=== PATIENT | male | born 1970 | race Caucasian/White ===

== ENCOUNTER 2019-01-17 12:42 | Emergency (ER) | payer BC ==
--- NOTE | 2019-01-17 12:53 | EDM.PDOC ---
ED HPI GENERAL MEDICAL PROBLEM - General Chief Complaint: Upper Extremity Injury/Pain Stated Complaint: RIGHT HAND;FINGER INJURY Time Seen by Provider: 01/17/19 12:52 Source of Information: Reports: Patient History Limitations: Reports: No Limitations - History of Present Illness INITIAL COMMENTS - FREE TEXT/NARRATIVE: HISTORY AND PHYSICAL: History of present illness: [] Review of systems: As per history of present illness and below otherwise all systems reviewed and negative. Past medical history: As per history of present illness and as reviewed below otherwise noncontributory. Surgical history: As per history of present illness and as reviewed below otherwise noncontributory. Social history: No reported history of drug or alcohol abuse. Family history: As per history of present illness and as reviewed below otherwise noncontributory. Physical exam: General: Patient sitting comfortably in no acute distress and nontoxic appearing HEENT: Atraumatic, normocephalic, pupils reactive, negative for conjunctival pallor or scleral icterus, mucous membranes moist, throat clear, neck supple, nontender, trachea midline. No meningeal signs. Lungs: Clear to auscultation, breath sounds equal bilaterally, chest nontender. Heart: S1S2, regular, negative for clicks, rubs, or overt murmur. Abdomen: Soft, nondistended, nontender. Negative for masses or hepatosplenomegaly. Negative for costovertebral tenderness. No rigidity, rebound , guarding. Pelvis: Stable nontender. Genitourinary: Deferred. Rectal: Deferred. Extremities: Atraumatic, negative for cords or calf pain. Neurovascular unremarkable. Neuro: Awake, alert, oriented. Cranial nerves II through XII unremarkable. Cerebellum unremarkable. Motor and sensory unremarkable throughout. Exam nonfocal. Notes: Diagnostics: [] Therapeutics: [] Prescriptions: Impression: [] Plan: [] Definitive disposition and diagnosis as appropriate pending reevaluation and review of above. - Related Data Allergies Allergy/AdvReac Type Severity Reaction Status Date / Time No Known Allergies Allergy Verified 01/17/19 12:50 Home Meds: Home Meds . [No Known Home Meds] 01/17/19 [History] Review of Systems - Review of Systems Review Of Systems: ROS reveals no pertinent complaints other than HPI. ED EXAM, GENERAL - Physical Exam Exam: See Below (see dictation) Course - Orders/Labs/Meds Orders: Active Orders 24 hr Category Date Time Status Fingers Fifth Digit Rt F9 [CR] Stat Exams 01/17/19 12:52 Ordered Departure - Discharge Information Referrals: Claudio Guy MD [Primary Care Provider] - - My Orders Last 24 Hours: My Active Orders 01/17/19 12:52 Fingers Fifth Digit Rt F9 [CR] Stat - Assessment/Plan Last 24 Hours: My Active Orders 01/17/19 12:52 Fingers Fifth Digit Rt F9 [CR] Stat
[2019-01-17] MEDS ORDERED: Diphtheria,Pertussis(Acell),Tetanus Vaccine 0.5 ML Syringe IM ONE (12:56)
[2019-01-17] MEDS ORDERED: cefTRIAXone 1 GM Vial IM ONE (12:56)
[2019-01-17] MEDS ORDERED: Lidocaine 1% 10 ML MDV INJECT ONE (13:03)
[2019-01-17] MEDS ORDERED: Morphine 4 MG/ML Syringe IVPUSH ONE (13:10)
[2019-01-17] MEDS ORDERED: Ondansetron 4 MG/2 ML SDV IVPUSH ONE (13:21)
[2019-01-17] MEDS ORDERED: Ondansetron 4 MG/2 ML SDV ONE (13:22)
--- NOTE | 2019-01-17 13:27 | EDM.PDOC ---
ED HPI GENERAL MEDICAL PROBLEM - General Chief Complaint: Upper Extremity Injury/Pain Stated Complaint: RIGHT HAND;FINGER INJURY Time Seen by Provider: 01/17/19 12:52 Source of Information: Reports: Patient - History of Present Illness INITIAL COMMENTS - FREE TEXT/NARRATIVE: HISTORY AND PHYSICAL: History of present illness: [Just prior to arrival patient was working on a tractor hitch, his son had a pushed a button in the cab of the tractor resulting in amputation of his fifth digit on x-ray the distal portion of the interdigital phalanx is gone as well as distal phalanx he through this portion away at the scene. He refuses transfer to [place] requesting treatment now to the best of my ability as he has amputated fingers before a does not desire to travel to [place] for hand specialist however it has been offered. Have discussed the case with hand specialty for their recommendations in this instance Review of systems: As per history of present illness and below otherwise all systems reviewed and negative. Past medical history: As per history of present illness and as reviewed below otherwise noncontributory. Surgical history: As per history of present illness and as reviewed below otherwise noncontributory. Social history: No reported history of drug or alcohol abuse. Family history: As per history of present illness and as reviewed below otherwise noncontributory. Physical exam: HEENT: Atraumatic, normocephalic, pupils reactive, negative for conjunctival pallor or scleral icterus, mucous membranes moist, throat clear, neck supple, nontender, trachea midline. Lungs: Clear to auscultation, breath sounds equal bilaterally, chest nontender. Heart: S1S2, regular, negative for clicks, rubs, or JVD. Abdomen: Soft, nondistended, nontender. Negative for masses or hepatosplenomegaly. Negative for costovertebral tenderness. Pelvis: Stable nontender. Genitourinary: Deferred. Rectal: Deferred. Extremities: Atraumatic, negative for cords or calf pain. Neurovascular unremarkable. Neuro: Awake, alert, oriented. Cranial nerves II through XII unremarkable. Cerebellum unremarkable. Motor and sensory unremarkable throughout. Exam nonfocal. Diagnostics: [] Therapeutics: Patient is offered transfer however he adamantly refuses Consent is signed and on chart wound cleansed and explored Possible need for revision by hand specialist was discussed patient accepts this risk irrigated well [Tetanus status is updated 1 g Rocephin Rongeur was used to trim remnant bone of interdigital phalanx back to the proximal phalanx Again flushed and irrigated thoroughly Lidocaine for digital block Morphine 4 mg IV Zofran 8 mg IV Versed 4 mg IV Closure with 5-0 Prolene sutures interrupted #5 Sutures out in 14 days Splint for protection and comfort/healing keFlex 500 mg by mouth twice a day #20 no refill [place] per 325 #30 no refill All risks and benefits discussed I did discuss patient with hand specialist gas station attendant at [facility], he recommends rongeur back to the proximal phalanx irrigation and closure Follow-up with orthopedist or hand specialist both options are offered for one week for recheck ] Impression: [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 RMarek Pinky Pain Score (Numeric/FACES): 2 - Related Data Allergies Allergy/AdvReac Type Severity Reaction Status Date / Time No Known Allergies Allergy Verified 01/17/19 12:50 Home Meds: Home Meds . [No Known Home Meds] 01/17/19 [History] Past Medical History - Past Health History Medical/Surgical History: Denies Medical/Surgical History - Infectious Disease History Infectious Disease History: Reports: None Social & Family History - Family History Family Medical History: Noncontributory - Tobacco Use Smoking Status *Q: Current Every Day Smoker Years of Tobacco use: 25 Packs/Tins Daily: 0.5 - Caffeine Use Caffeine Use: Reports: Coffee - Recreational Drug Use Recreational Drug Use: No ED ROS GENERAL - Review of Systems Review Of Systems: See Below ED EXAM, GENERAL - Physical Exam Exam: See Below Course - Vital Signs Last Recorded V/S: Last Vital Signs Temp 98.2 F 01/17/19 12:50 Pulse 102 H 01/17/19 13:53 Resp 15 01/17/19 12:50 BP 145/96 H 01/17/19 13:53 Pulse Ox 98 01/17/19 13:53 - Orders/Labs/Meds Orders: Active Orders 24 hr Category Date Time Status Vaccines to be Administered [RC] PER UNIT ROUTINE Care 01/17/19 12:56 Active Meds: Medications Discontinued Medications Generic Name Dose Route Start Last Admin Trade Name Freq PRN Reason Stop Dose Admin Ceftriaxone Sodium 1 gm 01/17/19 12:56 01/17/19 13:25 Rocephin IM 01/17/19 12:57 1 gm ONETIME ONE Administration Diphtheria/Tetanus/Acell Pertussis 0.5 ml 01/17/19 12:56 01/17/19 13:25 Adacel IM 01/17/19 12:57 0.5 ml .ONCE ONE Administration Lidocaine HCl 10 ml 01/17/19 13:03 01/17/19 13:26 Xylocaine 1% INJECT 01/17/19 13:04 10 ml ONETIME ONE Administration Lidocaine HCl 5 ml 01/17/19 13:03 01/17/19 13:26 Xylocaine-Mpf 1% INJECT 01/17/19 13:04 5 ml ONETIME ONE Administration Lidocaine HCl Confirm 01/17/19 13:04 Xylocaine-Mpf 1% Administered 01/17/19 13:05 Dose 15 ml .ROUTE .STK-MED ONE Midazolam HCl 4 mg 01/17/19 13:41 01/17/19 13:46 Versed 5 Mg/Ml IVPUSH 01/17/19 13:42 Not Given ONETIME ONE Midazolam HCl 4 mg 01/17/19 13:47 01/17/19 13:48 Versed 1 Mg/Ml IVPUSH 01/17/19 13:48 4 mg ONETIME ONE Administration Morphine Sulfate 4 mg 01/17/19 13:10 01/17/19 13:24 Morphine IVPUSH 01/17/19 13:11 4 mg ONETIME ONE Administration Ondansetron HCl 8 mg 01/17/19 13:21 01/17/19 13:24 Zofran IVPUSH 01/17/19 13:22 8 mg ONETIME ONE Administration Ondansetron HCl Confirm 01/17/19 13:22 Zofran Administered 01/17/19 13:23 Dose 8 mg .ROUTE .STK-MED ONE Departure - Departure Time of Disposition: 14:20 Disposition: Home, Self-Care 01 Condition: Good Clinical Impression: Amputation finger - Discharge Information Referrals: Claudio Guy MD [Primary Care Provider] - Forms: ED Department Discharge Additional Instructions: Medication as prescribed Return if symptoms persist or worsen Follow-up with orthopedist or hand specialist one week Hand specialist available through [facility] in [facility], [address] at [place] and asked to be transferred to the hand clinic to schedule appointment Or follow-up with orthopedist here in town, call phone number below to schedule appropriate follow-up [facility] Professional Building [address] [place] [address], [address] [place] [address] The following information is given to patients seen in the emergency department who are being discharged to home. This information is to outline your options for follow-up care. We provide all patients seen in our emergency department with a follow-up referral. The need for follow-up, as well as the timing and circumstances, are variable depending upon the specifics of your emergency department visit. If you don't have a primary care physician on staff, we will provide you with a referral. We always advise you to contact your personal physician following an emergency department visit to inform them of the circumstance of the visit and for follow-up with them and/or the need for any referrals to a consulting specialist. The emergency department will also refer you to a specialist when appropriate. This referral assures that you have the opportunity for follow-up care with a specialist. All of these measure are taken in an effort to provide you with optimal care, which includes your follow-up. Under all circumstances we always encourage you to contact your private physician who remains a resource for coordinating your care. When calling for follow-up care, please make the office aware that this follow-up is from your recent emergency room visit. If for any reason you are refused follow-up, please contact the [facility] emergency department at and asked to speak to the emergency department charge nurse. - My Orders Last 24 Hours: My Active Orders 01/17/19 12:56 Vaccines to be Administered [RC] PER UNIT ROUTINE - Assessment/Plan Last 24 Hours: My Active Orders 01/17/19 12:56 Vaccines to be Administered [RC] PER UNIT ROUTINE
--- NOTE | 2019-01-17 13:29 | CR ---
INDICATION: Crush injury to 5th digit. TECHNIQUE: Three views. FINDINGS: Soft tissue and bone defect at the distal 5th digit, about the DIP joint. There are portions of bone and soft tissue missing/absent. No radiopaque foreign body identified. 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 Dictated by Nick Goyal MD @ Jan 17 2019 1:24PM Signed by Dr. Nick Goyal @ Jan 17 2019 1:26PM
--- NOTE | 2019-01-17 13:40 | CR ---
INDICATION: Crushing injury to 5th digit. TECHNIQUE: Right 5th digit three views COMPARISON: None FINDINGS AND IMPRESSION: There is a large soft tissue defect of the right 5th digit with amputation of the head of the 5th middle phalanx and base of the 5th distal phalanx. There is a small (3 mm) osseous fragment adjacent to the remaining 5th distal phalanx. Alignment at the PIP joint is anatomic. There is associated soft tissue swelling of the 5th digit. Dictated by Nancy Partida MD @ 01/17/2019 1:37:47 PM Dictated by: Nancy Partida MD @ 01/17/2019 13:38:01 (Electronically Signed)
[2019-01-17] MEDS ORDERED: Midazolam 5 MG/ML SDV IVPUSH ONE (13:41)
[2019-01-17] MEDS ORDERED: Midazolam 1 MG/ML 2 ML SDV IVPUSH ONE (13:47)
[2019-01-17] MEDS ORDERED: Bacitracin Oint 28.35 GM Tube TOP ONE (14:32)
[2019-01-17] MEDS ORDERED: Bacitracin Oint 1 GM U/D Packet ONE (14:32)
== END 2019-01-17 14:55 | disposition home or self-care (01) ==
LOC: MW.ED 12:42
DX: S68.116A Complete traumatic metacarpophalangeal amputation of right little finger, initial encounter (principal); F17.210 Nicotine dependence, cigarettes, uncomplicated; Z23 Encounter for immunization; W30.89XA Contact with other specified agricultural machinery, initial encounter
CPT/HCPCS: 26951; 73130; 73140; 90471; 90715; 96372; 96374; 96375; 99283; J0696; J2001; J2250; J2270; J2405

== ENCOUNTER 2021-02-20 21:25 | Emergency (ER) | payer BC ==
--- NOTE | 2021-02-20 22:10 | CR ---
INDICATION: Hypertension TECHNIQUE: Chest radiograph 1 view COMPARISON: None FINDINGS: Mediastinum: The mediastinum is normal in appearance. The heart silhouette is normal in size and morphology. Lung: Both lungs are unremarkable in appearance. No sign of pleural effusion seen. No pneumothorax is identified. Bone and Soft tissue: Unremarkable for age. IMPRESSION: 1. No acute cardiopulmonary disease is seen. Dictated by: Kiet Villagran MD @ 02/20/2021 22:09:26 (Electronically Signed)
[2021-02-20 22:50] LABS: BLOOD UREA NITROGEN,BUN 18 mg/dL (7.0-18.0); CARBON DIOXIDE,CO2 29.6 mmol/L (21.0-32.0); CHLORIDE,CL 105 mmol/L (98-107); GLUCOSE RANDOM 114 mg/dL (74-106); POTASSIUM,K 4.1 mmol/L (3.5-5.1); SODIUM,NA 143 mmol/L (136-148)
[2021-02-21] MEDS ORDERED: amLODIPine 5 MG Tab PO ONE (00:28)
--- NOTE | 2021-02-21 01:56 | EDM.PDOC ---
ED HPI GENERAL MEDICAL PROBLEM - General Chief Complaint: General Stated Complaint: High blood pressure Time Seen by Provider: 02/21/21 00:13 - History of Present Illness INITIAL COMMENTS - FREE TEXT/NARRATIVE: HISTORY AND PHYSICAL: History of present illness: This is a healthy 50-year-old gentleman who presents ER today secondary to noticing his blood pressure was elevated today. Patient reports that he has been in his usual state of health and had a physical exam approximately 2 months ago and was told his blood pressure was normal. Patient reports in the past he has had slightly elevated blood pressures intermittently and at times. He reports he is never required blood pressure medications. Patient reports that today he just was not feeling right without any specific complaints so he used his 's blood pressure machine and notes that his blood pressure was markedly elevated. Patient came to the ED for further evaluation. Patient denies any other symptomatology. Patient denies any recent fevers, shakes, chills, nausea, vomiting, diarrhea, dysuria, frequency, urgency, chest pain, shortness breath, abdominal pain, headache, blurred vision, double vision, weakness of his upper or lower extremities. Patient denies any urinary changes. Patient denies any lower extremity edema. Patient denies any increase shortness of breath. Patient has no neurological cardiac or renal symptoms. Review of systems: As per history of present illness and below otherwise all systems reviewed and negative. Past medical history: As per history of present illness and as reviewed below otherwise noncontributory. Surgical history: As per history of present illness and as reviewed below otherwise noncontributory. Social history: No reported history of drug abuse. Family history: As per history of present illness and as reviewed below otherwise noncontributory. Physical exam: This patient was seen and evaluated during the 2019 SARS-CoV-2 novel coronavirus pandemic period. Community viral transmission is ongoing at time of this encounter and the emergency department is operating under pandemic response procedures. Constitutional: Patient is oriented to person, place, and time. Appears well-developed and well-nourished. No distress. HEENT: Moist mucous membranes Head: Normocephalic and atraumatic Eyes: Right eye exhibits no discharge. Left eye exhibits no discharge. No scleral icterus Neck: Normal range of motion. No tracheal deviation present. Cardiovascular: Normal rate and regular rhythm. Pulmonary: Effort normal, no respiratory distress. Abdominal: No distention Musculoskeletal: Normal range of motion Neurologic: Alert and oriented to person, place and time. Skin: [place], warm and dry. Psychiatric: Normal mood and affect. Behavior is normal. Judgment and thought content normal. Nursing note and vital signs have been reviewed Diagnostics: CBC, CMP within normal limits. Chest Xray: Normal cardiac silhouette No infiltrates or effusions identified. No PTX No evidence of acute bony fracture. As interpreted by ER MD: Al EKG February 21, 2021 12:41 AM: EKG: As interpreted by ER physician: Al: Nonspecific ST-T wave abnormalities Normal axis No evidence of ST elevation [place] Normal sinus rhythm heart rate of 90 Therapeutics: Norvasc 10 mg p.o. Assessment and plan: 50-year-old gentleman who presents ER today secondary to elevated blood pressure. Patient's blood pressure was markedly elevated here in triage and room while he was resting. Patient denies any new allergens, medications, stimulants, [id number] medicines, herbal drugs, increased stress in his life or any other sources of elevated blood pressure. Given the elevation in his BP labs were drawn. Patient is no evidence of intracranial, cardiac, renal pathology from his elevated blood pressure. Patient has no evidence of hypertensive emergency. Patient will have antihypertensive medications initiated here in the ED given the significant elevation and he will be instr ucted to follow-up with his doctor in the next 1 to 2 weeks for reevaluation. Patient was given a dose of Norvasc 10 mg p.o. with significant improvement. Patient be discharged with a prescription for the same. Reassessment at the time of disposition demonstrates that the patient is in no acute distress. The patient has remained stable throughout the entire ED visit and is without objective evidence for acute process requiring urgent intervention or hospitalization. The patient is stable for discharge, counseling is provided as documented above, discussed symptomatic treatment and specific conditions for return. I have spoken with the patient/caregiver and discussed todays findings, in addition to providing specific details for the plan of care. Questions are answered and there is agreement with the plan. Definitive disposition and diagnosis as appropriate pending reevaluation and review of above. - Related Data Allergies Allergy/AdvReac Type Severity Reaction Status Date / Time No Known Allergies Allergy Verified 01/17/19 12:50 Home Meds: Home Meds amLODIPine Besylate [Amlodipine Besylate] 10 mg PO DAILY #30 tablet 02/21/21 [Rx] Past Medical History - Past Health History Medical/Surgical History: Denies Medical/Surgical History - Infectious Disease History Infectious Disease History: Reports: None Social & Family History - Family History Family Medical History: No Pertinent Family History - Tobacco Use Second Hand Smoke Exposure: No - Caffeine Use Caffeine Use: Reports: None - Recreational Drug Use Recreational Drug Use: No ED ROS GENERAL - Review of Systems Review Of Systems: See Below ED EXAM, GENERAL - Physical Exam Exam: See Below Course - Vital Signs Last Recorded V/S: Last Vital Signs Temp 98.2 F 02/20/21 21:36 Pulse 116 H 02/20/21 21:36 Resp 20 02/20/21 21:36 BP 164/99 H 02/21/21 01:35 Pulse Ox 96 02/21/21 01:35 - Orders/Labs/Meds Orders: Active Orders 24 hr Category Date Time Status Cardiac Monitoring [RC] . DIRECTED Care 02/20/21 21:48 Active Labs: Laboratory Tests 02/20/21 02/20/21 02/21/21 Range/Units 22:24 22:24 01:15 WBC 7.88 (4.0-11.0) K/uL RBC 4.47 L (4.50-5.90) M/uL Hgb 14.3 (13.0-17.0) g/dL Hct 42.0 (38.0-50.0) % MCV 94.0 (80.0-98.0) fL MCH 32.0 (27.0-32.0) pg MCHC 34.0 (31.0-37.0) g/dL RDW Std Deviation 46.8 (28.0-62.0) fl RDW Coeff of Valerie 14 (11.0-15.0) % Plt Count 240 (150-400) K/uL MPV 9.90 (7.40-12.00) fL Neut % (Auto) 57.7 (48.0-80.0) % Lymph % (Auto) 28.9 (16.0-40.0) % [place] % (Auto) 11.5 (0.0-15.0) % Eos % (Auto) 1.6 (0.0-7.0) % Baso % (Auto) 0.3 (0.0-1.5) % Neut # (Auto) 4.5 (1.4-5.7) K/uL Lymph # (Auto) 2.3 (0.6-2.4) K/uL [place] # (Auto) 0.9 H (0.0-0.8) K/uL Eos # (Auto) 0.1 (0.0-0.7) K/uL Baso # (Auto) 0.0 (0.0-0.1) K/uL Nucleated RBC % 0.0 /100WBC Nucleated RBCs # 0 K/uL Sodium 143 (136-148) mmol/L Potassium 4.1 (3.5-5.1) mmol/L Chloride 105 (98-107) mmol/L Carbon Dioxide 29.6 (21.0-32.0) mmol/L BUN 18 (7.0-18.0) mg/dL Creatinine 1.0 (0.8-1.3) mg/dL Est Cr Clr Drug Dosing 110.91 mL/min Estimated GFR (MDRD) > 60.0 ml/min Glucose 114 H (74-106) mg/dL Calcium 9.7 (8.5-10.1) mg/dL Total Bilirubin 0.2 (0.2-1.0) mg/dL AST 18 (15-37) IU/L ALT 34 (14-63) IU/L Alkaline Phosphatase 64 (46-116) U/L Troponin I < 0.050 (0.000-0.056) ng/mL Total Protein 7.2 (6.4-8.2) g/dL Albumin 3.6 (3.4-5.0) g/dL Globulin 3.6 (2.6-4.0) g/dL Albumin/Globulin Ratio 1.0 (0.9-1.6) Urine Color YELLOW Urine Appearance CLEAR Urine pH 6.5 (5.0-8.0) Ur Specific Manning 1.020 (1.001-1.035) Urine Protein NEGATIVE (NEGATIVE) mg/dL Urine Glucose (UA) NEGATIVE (NEGATIVE) mg/dL Urine Ketones NEGATIVE (NEGATIVE) mg/dL Urine Occult Blood NEGATIVE (NEGATIVE) Urine Nitrite NEGATIVE (NEGATIVE) Urine Bilirubin NEGATIVE (NEGATIVE) Urine Urobilinogen 0.2 (<2.0) EU/dL Ur Leukocyte Esterase NEGATIVE (NEGATIVE) Meds: Medications Discontinued Medications Generic Name Dose Route Start Last Admin Trade Name Daniel PRN Reason Stop Dose Admin Amlodipine Besylate 10 mg 02/21/21 00:28 02/21/21 00:37 Amlodipine 5 Mg Tab PO 02/21/21 00:29 10 mg ONETIME ONE Administration Departure - Departure Time of Disposition: 01:58 Disposition: Home, Self-Care 01 Condition: Good Clinical Impression: Hypertension - Discharge Information Instructions: How to Take Your Blood Pressure, Hypertension, Adult, [id number], Managing Your Hypertension Referrals: PCP,None [Primary Care Provider] - Additional Instructions: You were seen and evaluated in the ER today secondary to elevated blood pressure. Your blood tests, your EKG have all been normal. You were started on amlodipine/Norvasc 10 mg daily in the ER today. You will be given a prescription for 30 days of this medication. Please see your doctor within the next week for reevaluation and repeat of your blood pressure to see if they agre e with the plan of care that was initiated here in the ER today. Please return the ER if you develop any new or concerning symptoms such as chest pain, shortness of breath, lower extremity swelling, weakness or any other symptoms of concern. The following information is given to patients seen in the emergency department who are being discharged to home. This information is to outline your options for follow-up care. We provide all patients seen in our emergency department with a follow-up referral. The need for follow-up, as well as the timing and circumstances, are variable depending upon the specifics of your emergency department visit. If you don't have a primary care physician on staff, we will provide you with a referral. We always advise you to contact your personal physician following an emergency department visit to inform them of the circumstance of the visit and for follow-up with them and/or the need for any referrals to a consulting specialist. The emergency department will also refer you to a specialist when appropriate. This referral assures that you have the opportunity for follow-up care with a specialist. All of these measure are taken in an effort to provide you with optimal care, which includes your follow-up. Under all circumstances we always encourage you to contact your private physician who remains a resource for coordinating your care. When calling for follow-up care, please make the office aware that this follow-up is from your recent emergency room visit. If for any reason you are refused follow-up, please contact the [facility] Emergency Department at and asked to speak to the emergency department charge nurse. [facility] [address] [place] [address] [id number] [address] [address] Sepsis Event Note (ED) - Evaluation Sepsis Screening Result: No Definite Risk - Focused Exam Vital Signs: Vital Signs Temp Pulse Resp BP BP Pulse Ox 02/21/21 01:35 164/99 H 96 02/21/21 01:00 162/97 H 02/21/21 00:37 190/112 H 02/21/21 00:15 196/113 H 02/20/21 21:36 98.2 F 116 H 20 206/109 H 97
== END 2021-02-21 02:10 | disposition home or self-care (01) ==
LOC: MW.ED 21:25
DX: I10 Essential (primary) hypertension (principal)
CPT/HCPCS: 36415; 71045; 80053; 81003; 84484; 85025; 93005; 99284; A9270

== ENCOUNTER 2024-03-19 14:30 | Day surgery (SDC) | payer BC ==
[2024-03-19 15:21] LABS: BASOPHILS ABSOLUTE AUTO 0.04 K/uL (0.00-0.20); BASOPHILS PERCENT AUTO 0.2 % (0.0-1.0); EOSINOPHILS ABSOLUTE AUTO 0.24 K/uL (0.00-0.45); EOSINOPHILS PERCENT AUTO 1.5 % (0.0-6.0); HEMATOCRIT 46.7 % (42.0-52.0); HEMOGLOBIN 15.9 g/dL (14.0-18.0); IMMATURE GRAN ABSOLUTE AUTO 0.04 K/uL (0.00-0.05); IMMATURE GRAN PERCENT AUTO 0.2 % (0.0-0.4); LYMPHOCYTES ABSOLUTE AUTO 1.38 K/uL (1.00-4.80); LYMPHOCYTES PERCENT AUTO 8.6 % (24.0-44.0); MEAN CORPUSCULAR HEMOGLOBIN 31.8 pg (28.0-32.0); MEAN CORPUSCULAR VOLUME 93.4 fL (83.0-99.0); MEAN PLATELET VOLUME 9.2 fL (9.4-12.4); MONOCYTES ABSOLUTE AUTO 1.34 K/uL (0.00-0.80); MONOCYTES PERCENT AUTO 8.3 % (0.0-8.0); NEUTROPHILS ABSOLUTE AUTO 13.01 K/uL (1.80-7.70); NEUTROPHILS PERCENT AUTO 81.2 % (41.0-71.0); PLATELET COUNT,PLT 276 K/uL (150-400); WHITE BLOOD CELL COUNT,WBC 16.05 K/uL (3.9-11.3)
[2024-03-19 15:49] LABS: A/G RATIO 1.3 (0.9-1.6); ALBUMIN 4.3 g/dL (3.4-5.0); BILIRUBIN TOTAL 0.4 mg/dL (0.2-1.0); CALCIUM 9.9 mg/dL (8.5-10.1); EST CRCL DRUG DOSING (CG) 101.61 mL/min; POTASSIUM,K 4.1 mmol/L (3.5-5.1); PROTEIN TOTAL,TP 7.7 g/dL (6.4-8.2)
[2024-03-19] MEDS: Iopamidol 755 Mg/ML 100 ML Bottle IVPUSH ONE (16:15)
[2024-03-19 16:19] LABS: LACTIC ACID 1.6 mmol/L (0.4-2.0)
[2024-03-19] MEDS: Piperacillin/Tazobactam 4.5 GM in Sodium Chloride 0.9% 100 ML IV STA (16:25)
[2024-03-19] MEDS: Sodium Chloride 0.9% 1,000 ML IV STA ×2 (16:25)
[2024-03-19] MEDS ORDERED: Propofol 200 MG/20 ML SDV ONE (17:33)
[2024-03-19] MEDS ORDERED: Bupivacaine 0.5% 30 ML SDV ONE (17:33)
[2024-03-19] MEDS ORDERED: Midazolam 1 MG/ML 2 ML SDV ONE (17:35)
[2024-03-19] MEDS ORDERED: Lidocaine 1% 5 ML VIAL ONE (17:35)
[2024-03-19] MEDS ORDERED: fentaNYL 100 MCG/2 ML SDV ONE (17:35)
[2024-03-19] MEDS ORDERED: Rocuronium Bromide 50 MG/5 ML Syringe ONE (17:35)
[2024-03-19] MEDS ORDERED: Dexamethasone 4 MG/ML 5 ML MDV ONE (17:35)
[2024-03-19] MEDS ORDERED: Ondansetron 4 MG/2 ML SDV ONE (17:35)
[2024-03-19] MEDS ORDERED: Morphine 10 MG/ML SDV ONE (17:41)
[2024-03-19] MEDS ORDERED: Ropivacaine 0.5% 5 MG/ML 30 ML SDV ONE (17:43)
[2024-03-19] MEDS ORDERED: Phenylephrine HCl In 0.9% NaCl 1 MG/10 ML Syringe ONE (18:32)
[2024-03-19] MEDS ORDERED: Ketorolac 30 MG/ML SDV ONE (18:58)
[2024-03-19] MEDS ORDERED: Sugammadex Sodium 200 MG/2 ML VIAL IV ONE (18:58)
[2024-03-19 19:19] LABS: APPEARANCE,URINE CLEAR; BILIRUBIN,URINE NEGATIVE (NEGATIVE); COLOR,URINE YELLOW; GLUCOSE,URINE NEGATIVE (NEGATIVE); KETONES,URINE 15 mg/dL (NEGATIVE); LEUKOCYTE ESTERASE,URINE NEGATIVE (NEGATIVE); NITRITE,URINE NEGATIVE (NEGATIVE); OCCULT BLOOD,URINE NEGATIVE (NEGATIVE); PROTEIN,URINE NEGATIVE (NEGATIVE); UROBILINOGEN,URINE 0.2 EU/dL (<2.0)
[2024-03-19] MEDS ORDERED: HYDROmorphone 0.5 MG/0.5 ML Syringe IVPUSH PRN (19:40)
[2024-03-19] MEDS ORDERED: Acetaminophen/oxyCODONE 325-5 MG Tab PO PRN (19:40)
[2024-03-19] MEDS ORDERED: Sodium Chloride 0.9% 20 ML SDV IV PRN (19:40)
[2024-03-19] MEDS ORDERED: Sodium Chloride 0.9% 10 ML Syringe FLUSH PRN (19:40)
[2024-03-19] MEDS ORDERED: Ketorolac 30 MG/ML SDV IVPUSH PRN (19:40)
[2024-03-19] MEDS ORDERED: Sodium Chloride 0.9% 2.5 ML Syringe FLUSH PRN (19:40)
[2024-03-19] MEDS ORDERED: Metoprolol Tartrate 5 MG/5 ML SDV IVPUSH PRN (19:42)
[2024-03-19] MEDS ORDERED: Sodium Chloride 0.9% 1,000 ML IV SCH (19:45)
[2024-03-20] MEDS: Piperacillin/Tazobactam 4.5 GM in Sodium Chloride 0.9% 100 ML IV SCH (08:04)
[2024-03-20] MEDS ORDERED: Piperacillin/Tazobactam 4.5 GM in Sodium Chloride 0.9% 100 ML IV SCH (21:30)
== END 2024-03-20 09:30 | disposition home or self-care (01) ==
LOC: MW.ED 14:30 → MW.SDS 17:06 → MW.MS 20:42 → MW.SDS 03-20 09:15
PROVIDERS: ATTEND Surgery
DX: K35.80 Unspecified acute appendicitis (principal); I10 Essential (primary) hypertension
CPT/HCPCS: 36415; 44970; 64488; 74177; 80053; 81003; 83605; 83690; 85025; 87040; 96365; 99285; J0131; J0665; J1100; J1885; J2250; J2272; J2371; J2405; J2543; J2704; J2795; J3010; J3490; J7030; Q9967; 00840; 99284

== ENCOUNTER 2024-06-30 07:02 | Day surgery (SDC) | payer BC ==
[~2024-06-30 07:02] MED LIST: Sodium Chloride 0.9% 10 ML Syringe FLUSH PRN; Sodium Chloride 0.9% 2.5 ML Syringe FLUSH PRN; Sodium Chloride 0.9% 20 ML SDV IV PRN
[2024-06-30] MEDS ORDERED: Lidocaine 2% 5 ML SDV ONE (07:22)
[2024-06-30] MEDS ORDERED: propofoL 500 MG/50 ML 50 ML ONE (07:22)
[2024-06-30] MEDS: Lactated Ringers 1,000 ML IV SCH (07:24)
== END 2024-06-30 09:40 | disposition home or self-care (01) ==
LOC: MW.SDS 07:02
PROVIDERS: ATTEND Surgery
DX: K57.30 Diverticulosis of large intestine without perforation or abscess without bleeding (principal); I10 Essential (primary) hypertension; E66.9 Obesity, unspecified; F17.210 Nicotine dependence, cigarettes, uncomplicated; Z68.31 Body mass index [BMI] 31.0-31.9, adult; Z98.890 Other specified postprocedural states; Z85.038 Personal history of other malignant neoplasm of large intestine; Z79.899 Other long term (current) drug therapy
CPT/HCPCS: 45378; J2003; J2704; J7120; 00811